=== PATIENT | female | born 1990 | race Caucasian/White ===

== ENCOUNTER 2024-04-25 15:37 | Emergency (ER) | payer OTHER ==
[2024-04-25 16:00] VITALS: BP 129/94; PULSE 100; RESP 20; TEMP 98.7; BMI 21.2
== END 2024-04-25 17:55 | disposition home or self-care (01) ==
LOC: JERFT 15:37
DX: S61.241A Puncture wound with foreign body of left index finger without damage to nail, initial encounter (principal); W46.1XXA Contact with contaminated hypodermic needle, initial encounter
CPT/HCPCS: 36415; 86705; 86803; 87340; 87350; 87517; 99283-25